=== PATIENT | female | born 1990 | race Caucasian/White ===

== ENCOUNTER → 2021-06-26 | Outpatient (CLI) | payer OTHER | LOC: COL.RAD 13:07 | DX: G35 Multiple sclerosis (principal); M40.50 Lordosis, unspecified, site unspecified | CPT/HCPCS: A9585 ==

== ENCOUNTER → 2022-01-22 | Outpatient (RCR) | payer OTHER ==
[2022-01-19 17:44] VITALS: BP 111/75; PULSE 61; TEMP 98.7
[2022-01-19 17:59] LABS: BASO % 0.2 % (0.0-2.0); EOS # 0.1 K/mm3 (0.0-0.7); EOS % 1.2 % (0.0-4.0); GRAN # 7.3 K/mm3 (1.4-6.5); GRAN % 70.1 % (42.2-75.2); HEMATOCRIT 38.1 % (37.0-47.0); HEMOGLOBIN 12.8 g/dl (12.5-16.0); LYMPH # 2.3 K/mm3 (1.2-3.4); LYMPH % 21.7 % (20.0-51.0); MEAN CELL VOLUME 86 fl (80.0-100.0); MEAN CORPUSCULAR HEMOGLOBIN 29 pg (27-31); MEAN CORPUSCULAR HGB CONC 34 g/dl (33.0-37.0); MEAN PLATELET VOLUME 10.3 fl (7.4-10.4); MONO # 0.7 K/mm3 (0.1-0.6); MONO % 6.4 % (1.7-9.3); PLATELET COUNT 293 K/mm3 (130-400); RED BLOOD COUNT 4.41 M/mm3 (4.10-5.30); REDCELL DISTRIBUTION WIDTH-CV 12.6 % (11.5-14.5)
[2022-01-19 18:17] LABS: ALBUMIN 4.3 gm/dL (3.5-5.0); BILIRUBIN,TOTAL 0.6 mg/dL (0.2-1.2); CALCIUM 9.1 mg/dL (8.4-10.2); CREATININE, serum 0.67 mg/dL (0.57-1.11); POTASSIUM 4.1 mmol/L (3.5-4.5); TOTAL PROTEIN 7.4 gm/dL (6.2-8.1)
[2022-01-19 19:28] VITALS: BP 103/70; PULSE 77
[2022-01-20 09:58] VITALS: BP 121/75; PULSE 96; TEMP 98.6
--- NOTE | 2022-01-20 12:05 | NUR ---
INT flushed, padded with 2x2 and wrapped for use tomorrow.
[2022-01-21 14:26] VITALS: BP 114/71; PULSE 55; TEMP 98.7
--- NOTE | 2022-01-21 16:42 | NUR ---
IV solumedrol completed. IV site dc'd, slight redness noted above iv. Patient denied pain, tenderness, no heat at site. Patient due back at 10 am in the morning. Left unit ambulatory.
[~2022-01-22] VITALS: Ht 167.6 cm; Wt 79.0 kg
[~2022-01-22] MED LIST: COPAXONE40 MG/ML SQ
[2022-01-22 09:07] VITALS: BP 120/70; PULSE 60; TEMP 98.4
== END ==
LOC: EUO
PROVIDERS: Psychiatry & Neurology Neurology
DX: G35 Multiple sclerosis (principal); H46.9 Unspecified optic neuritis
CPT/HCPCS: J2930; J7050

== ENCOUNTER 2022-01-23 09:53 | Outpatient (RCR) | payer OTHER ==
[~2022-01-23] VITALS: Ht 167.6 cm; Wt 79.0 kg
[2022-01-23 10:34] VITALS: BP 143/78; PULSE 55; TEMP 98
== END 2022-01-23 12:36 ==
LOC: EUO 09:53
DX: G35 Multiple sclerosis (principal); H46.9 Unspecified optic neuritis
CPT/HCPCS: J2930; J7050